=== PATIENT | male | born 1995 | race Caucasian/White ===

== ENCOUNTER 2018-01-12 23:43 | Observation (INO) | payer OTHER, MEDICAID ==
[~2018-01-12] VITALS: Ht 167.6 cm; Wt 59.4 kg
[2018-01-13 00:01] VITALS: Ht 167.6 cm; Wt 59.4 kg
[2018-01-13 01:25] LABS: BASOPHIL % 0.2 % (0-2); PLATELET COUNT 174 x10^3mcL (130-400); RED CELL DISTRIBUTION WIDTH 13.1 % (11.5-14.5)
[2018-01-13 01:40] LABS: microscopic required? NO
[2018-01-13 01:44] LABS: CALCIUM 9.4 mg/dL (8.5-10.1); CARBON DIOXIDE 26.5 mmol/L (21-32); CHLORIDE SERUM 103 mmol/L (98-107); CREATININE SERUM 0.6 mg/dL (0.7-1.3); GFR1 > 60 mL/min; GLUCOSE SERUM 94 mg/dL (74-106); POTASSIUM SERUM 3.6 mmol/L (3.5-5.1); SODIUM SERUM 136 mmol/L (136-145)
[2018-01-13 01:56] LABS: ALBUMIN 4.2 g/dL (3.4-5.0); ALKALINE PHOSPHATASE 85 U/L (46-116); ALT/SGPT 23 U/L (16-63); AST/SGOT 18 U/L (15-37); BILIRUBIN TOTAL 0.46 mg/dL (0.20-1.00); MAGNESIUM 2.2 mg/dL (1.8-2.4); TOTAL PROTEIN, SERUM 7.5 g/dL (6.4-8.2)
[2018-01-13] MEDS ORDERED: KEPPRA500 MG PO ×2 (02:06→18:46)
[2018-01-13] MEDS ORDERED: ELIQUIS2.5 MG PO (02:06)
[2018-01-13] MEDS ORDERED: ZANAFLEX CAPSULE4 MG PO (02:07)
[2018-01-13] MEDS ORDERED: NEU300 PO (02:07)
[2018-01-13 02:15] LABS: urine erythrocyte NEGATIVE (NEGATIVE)
[2018-01-13 03:42] LABS: CHOLESTEROL/HDL RATIO 2.1
[2018-01-13 03:42] LABS: AMPHETAMINE QUAL UR NONE DETECTED (NEG <=1000)
[2018-01-13 03:45] LABS: T3 TOTAL 0.69 ng/mL
[2018-01-13 03:54] LABS: FREE T4 1.16 ng/dL (0.76-1.46); T4(THYROXINE) 7.6 ug/dL (4.7-13.3)
[2018-01-13 05:53] VITALS: BP 113/75
[2018-01-13 08:15] VITALS: BP 108/62
== END 2018-01-13 21:14 | disposition short-term general hospital (02) | DRG 100 ==
LOC: ED 23:43 → DU 01-13 02:52
PROVIDERS: Emergency Medicine; Family Medicine
DX: G40.901 Epilepsy, unspecified, not intractable, with status epilepticus (principal); N17.0 Acute kidney failure with tubular necrosis; T14.90XS Injury, unspecified, sequela; G93.89 Other specified disorders of brain; V89.2XXS Person injured in unspecified motor-vehicle accident, traffic, sequela; Z68.21 Body mass index [BMI] 21.0-21.9, adult; Z87.820 Personal history of traumatic brain injury; Z74.01 Bed confinement status
CPT/HCPCS: 83880; 84439; G0378; J1165; J1200; J2060; J2930; J3490; J7030; Q0092